=== PATIENT | male | born 1955 | race Caucasian/White ===

== ENCOUNTER 2022-01-14 05:17 | Inpatient (IN) ==
[2022-01-14] MEDS ORDERED: DEXAMETHASONE 4 MG/1 ML VIAL ONE (06:22)
[2022-01-14] MEDS ORDERED: BUPIVACAINE MPF 0.25% 30 ML VIAL ONE (06:22)
[2022-01-14 06:27] LABS: PT Patient Result 11.4 SECS (10.5-12.0); Partial Thromboplastin Time 27.3 SECS (23.8-32.1)
[2022-01-14] MEDS ORDERED: PHENYLEPHRINE 10 MG/1 ML VIAL IV ONE (06:29)
[2022-01-14] MEDS ORDERED: fentaNYL 100 MCG/2 ML VIAL ONE (06:29)
[2022-01-14] MEDS ORDERED: PHENYLEPHRINE 1 MG/10 ML SYRINGE IV ONE (06:29)
[2022-01-14] MEDS ORDERED: MIDAZOLAM 2 MG/2 ML VIAL ONE (06:29)
[2022-01-14] MEDS ORDERED: propofoL 200 MG/20 ML VIAL IV ONE ×2 (06:29→08:41)
[2022-01-14] MEDS ORDERED: VANCOMYCIN INJ 1,000 MG in SODIUM CHLORIDE 0.9% 250 ML IV ONE (06:30)
[2022-01-14] MEDS ORDERED: ACETAMINOPHEN 500 MG TABLET PO ONE (06:30)
[2022-01-14] MEDS ORDERED: GABAPENTIN 400 MG CAPSULE PO ONE (06:30)
[2022-01-14] MEDS: LACTATED RINGERS 1,000 ML IV SCH ×2 (06:34→08:40)
[2022-01-14] MEDS ORDERED: MORPHINE 2 MG/1 ML SYRINGE IV PRN ×2 (07:06→07:15)
[2022-01-14] MEDS ORDERED: ONDANSETRON 4 MG/2 ML VIAL IV PRN (07:06)
[2022-01-14] MEDS ORDERED: BISACODYL 10 MG SUPP RECTAL PRN (07:06)
[2022-01-14] MEDS ORDERED: diphenhydrAMINE CAP 25 MG CAPSULE PO PRN (07:06)
[2022-01-14] MEDS ORDERED: LACTULOSE 20 GM/30 ML UDCUP PO PRN (07:06)
[2022-01-14] MEDS ORDERED: MAGNESIUM HYDROXIDE SUSP 30 ML UDCUP PO PRN (07:06)
[2022-01-14] MEDS ORDERED: TEMAZEPAM 7.5 MG CAPSULE PO PRN (07:06)
[2022-01-14] MEDS ORDERED: PROMETHAZINE 25 MG/1 ML VIAL IM PRN (07:06)
[2022-01-14] MEDS ORDERED: METHOCARBAMOL 750 MG TABLET PO PRN ×2 (07:10→09:12)
[2022-01-14] MEDS ORDERED: IBUPROFEN 800 MG TABLET PO PRN (07:10)
[2022-01-14] MEDS ORDERED: ePHEDrine 50 MG/ML VIAL ONE (07:36)
[2022-01-14] MEDS ORDERED: BUPIVACAINE SPINAL 0.75% 2 ML AMP SPINAL ONE (07:54)
[2022-01-14] MEDS ORDERED: ONDANSETRON 4 MG/2 ML VIAL ONE (07:55)
[2022-01-14] MEDS ORDERED: PNEUMOCOCCAL VACCINE (13 VALENT) 0.5 ML SYRINGE IM ONE (11:17)
[2022-01-14] MEDS: LOSARTAN 50 MG TABLET PO SCH (12:30)
[2022-01-14] MEDS: ceFAZolin 2,000 MG/50 ML DUPLEX IV SCH ×2 (13:19→21:50)
[2022-01-14] MEDS: FONDAPARINUX 2.5 MG/0.5 ML SYRINGE SUBCUT SCH (20:25)
[2022-01-14] MEDS: DOCUSATE SODIUM 100 MG CAPSULE PO SCH (20:25)
[2022-01-15] MEDS ORDERED: MORPHINE 4 MG/1 ML VIAL IV PRN ×2 (03:40→03:41)
[2022-01-15 06:33] LABS: Calcium 8.4 MG/DL (8.5-10.1); Potassium 3.8 MMOL/L (3.5-5.1)
[2022-01-15 06:38] LABS: Basophils % 0.3 % (0.0-0.8); Eosinophils # 0.2 10*3/uL (0.0-0.87); Eosinophils % 1.3 % (0.00-10.9); Hematocrit 39.4 VOL% (42.0-52.0); Hemoglobin 13.3 GM/DL (14.0-18.0); Immature Granulocytes % 0.4 %; Immature Granulocytes Absolute 0.05 #; Lymphocytes # 1.9 10*3/uL (1.4-4.0); Lymphocytes % 16.2 % (21.2-54.2); Mean Corpuscular HGB Conc 33.8 GM/DL (32-36); Mean Corpuscular Volume 90.4 FL (87-102); Mean Platelet Volume 11.2 FL (9.6-12.0); Monocytes % 9.4 % (1.7-12.7); Neutrophils % 72.4 % (38.7-73.9); Platelet Count 176 T/CUMM (130-400); Red Blood Count 4.36 MC/CUMM (3.8-5.5); Red Cell Distribution Width 13.3 % (9.3-17.3); White Blood Count 11.9 T/CUMM (4-12)
[2022-01-15] MEDS: DOCUSATE SODIUM 100 MG CAPSULE PO SCH ×2 (08:48→20:40)
[2022-01-15] MEDS: LOSARTAN 50 MG TABLET PO SCH (08:48)
[2022-01-15] MEDS: FONDAPARINUX 2.5 MG/0.5 ML SYRINGE SUBCUT SCH (20:40)
[2022-01-16] MEDS: DOCUSATE SODIUM 100 MG CAPSULE PO SCH ×3 (07:29→20:51)
[2022-01-16] MEDS: LOSARTAN 50 MG TABLET PO SCH ×2 (07:30→10:56)
[2022-01-16] MEDS: ACETAMINOPHEN 325 MG TABLET PO PRN (13:36)
[2022-01-16] MEDS: FONDAPARINUX 2.5 MG/0.5 ML SYRINGE SUBCUT SCH (20:50)
[2022-01-17] MEDS: ACETAMINOPHEN 325 MG TABLET PO PRN (01:15)
[2022-01-17] MEDS: LOSARTAN 50 MG TABLET PO SCH (09:35)
[2022-01-17] MEDS: DOCUSATE SODIUM 100 MG CAPSULE PO SCH (09:36)
[2022-01-17 11:29] VITALS: BP 132/79
== END 2022-01-17 13:37 | disposition home health service (06) | DRG 470 ==
LOC: N.OR 05:17 → N.SDSINP 05:20 → N.3E 08:56
PROVIDERS: ADMIT Orthopaedic Surgery; ATTEND Orthopaedic Surgery

== ENCOUNTER 2022-10-22 16:33 | Observation (INO) ==
[2022-10-22] MEDS ORDERED: SODIUM CHLORIDE 0.9% 1,000 ML IV STA (18:17)
[2022-10-22 18:45] LABS: Basophils % 0.3 % (0.0-0.8); Eosinophils # 0.1 10*3/uL (0.0-0.87); Eosinophils % 0.5 % (0.00-10.9); Hematocrit 40.6 VOL% (42.0-52.0); Hemoglobin 13.8 GM/DL (14.0-18.0); Immature Granulocytes % 0.4 %; Immature Granulocytes Absolute 0.05 #; Lymphocytes # 1.2 10*3/uL (1.4-4.0); Lymphocytes % 10.8 % (21.2-54.2); Mean Platelet Volume 9.9 FL (9.6-12.0); Monocytes # 0.8 10*3/uL (0.11-0.8); Monocytes % 7.1 % (1.7-12.7); Neutrophils % 80.9 % (38.7-73.9); Platelet Count 151 T/CUMM (130-400); Red Blood Count 4.51 MC/CUMM (3.8-5.5); White Blood Count 11.3 T/CUMM (4-12)
[2022-10-22 18:56] LABS: INR 1.1; PT Patient Result 11.7 SECS (10.1-12.1)
[2022-10-22 19:50] LABS: Bacteria,Urine Few /HPF (Few); Mucus,Urine Occasional /LPF (Occasional)
[2022-10-22 19:56] LABS: Urine Appearance Clear (Clear); Urine Color Yellow (Yellow)
[2022-10-22 19:57] LABS: Bilirubin,Urine Negative (Negative); Blood, Urine Trace mg/dL (Negative); Glucose,Urine (UA) Negative (Negative); Ketones,Urine Negative (Negative); Nitrite,Urine Positive (Negative); Protein,Urine 30 mg/dL (Negative); Urine Specific Gravity 1.025 (1.001-1.035)
[2022-10-22 20:48] LABS: Albumin 3.5 G/DL (3.4-5.0); Calcium 8.2 MG/DL (8.5-10.1); Osmolality,Calculated 279.7 MOS/KG (273-304); Potassium 3.6 MMOL/L (3.5-5.1); Total Protein 6.2 G/DL (6.4-8.2)
[2022-10-22] MEDS ORDERED: cefTRIAXone 1,000 MG in SODIUM CHLORIDE 0.9% 100 ML IV STA (20:54)
[2022-10-22] MEDS ORDERED: ASPIRIN 325 MG TABLET PO STA (21:01)
[2022-10-22] MEDS ORDERED: ONDANSETRON 4 MG/2 ML VIAL IV PRN (21:10)
[2022-10-22] MEDS ORDERED: IBUPROFEN 800 MG TABLET PO PRN (21:18)
[2022-10-22] MEDS ORDERED: SODIUM CHLORIDE 0.9% 1,000 ML IV SCH (21:30)
[2022-10-22] MEDS: SODIUM CHLORIDE 0.9% 1,000 ML IV SCH (22:40)
[2022-10-23 06:34] LABS: Basophils % 0.4 % (0.0-0.8); Eosinophils # 0.3 10*3/uL (0.0-0.87); Eosinophils % 3.4 % (0.00-10.9); Hematocrit 37.8 VOL% (42.0-52.0); Hemoglobin 12.9 GM/DL (14.0-18.0); Immature Granulocytes % 0.4 %; Immature Granulocytes Absolute 0.03 #; Lymphocytes # 1.3 10*3/uL (1.4-4.0); Mean Corpuscular HGB Conc 34.1 GM/DL (32-36); Mean Corpuscular Volume 91.7 FL (87-102); Mean Platelet Volume 9.3 FL (9.6-12.0); Monocytes # 0.8 10*3/uL (0.11-0.8); Monocytes % 9.3 % (1.7-12.7); Neutrophils % 71.5 % (38.7-73.9); Platelet Count 139 T/CUMM (130-400); Red Blood Count 4.12 MC/CUMM (3.8-5.5); White Blood Count 8.5 T/CUMM (4-12)
[2022-10-23 06:49] LABS: Albumin 2.6 G/DL (3.4-5.0); Bilirubin,Total 0.6 MG/DL (0.20-1.00); Calcium 8.1 MG/DL (8.5-10.1); Osmolality,Calculated 280.4 MOS/KG (273-304); Potassium 3.7 MMOL/L (3.5-5.1)
[2022-10-23] MEDS ORDERED: PANTOPRAZOLE 40 MG TABLET PO SCH (09:00)
[2022-10-23] MEDS ORDERED: ENOXAPARIN 40 MG/0.4 ML SYRINGE SUBCUT SCH (09:00)
[2022-10-23] MEDS ORDERED: TAMSULOSIN 0.4 MG CAPSULE PO SCH (09:00)
[2022-10-23] MEDS: SODIUM CHLORIDE 0.9% 1,000 ML IV SCH (10:34)
[2022-10-23 15:56] VITALS: BP 131/84
[2022-10-23] MEDS ORDERED: cefTRIAXone 1,000 MG in SODIUM CHLORIDE 0.9% 100 ML IV SCH (21:30)
== END 2022-10-23 16:30 | disposition home or self-care (01) ==
LOC: N.5E 16:33 → N.ED 16:33 → N.5E 22:47
PROVIDERS: ADMIT Family Medicine; ATTEND Family Medicine